=== PATIENT | male | born 1940 | race Caucasian/White ===

== ENCOUNTER 2020-04-05 17:56 | Inpatient (IN) | payer MEDICAID, MEDICARE, SELFPAY ==
[~2020-04-05] VITALS: Ht 175.3 cm; Wt 60.3 kg
[2020-04-05] MEDS: POTASSIUM CHLORIDE 10 MEQ in NACL 0.9% 1,000 ML IV SCH (00:20)
[2020-04-05 18:00] VITALS: BP_SYST 132
--- NOTE | 2020-04-05 18:05 | NUR ---
Placed in room 02 . Placed on cardiac/vascular sonographer, blood pressure machine and pulse oximeter. To gown for exam. Side rails up.
--- NOTE | 2020-04-05 18:07 | NUR ---
ER Dr. Lawrence at bedside examining patient.
--- NOTE | 2020-04-05 18:07 | NUR ---
Patient brought in by ambulance in the ED for abnormal labs - Hgb 6.5. No acute distress noted at this time. Patient is alert and oriented x1 and respirations even and unlabored. VSS, pain level 0/10. Informed of the approximate wait time. Instructed to notify ED staff for any changes in condition or worsening of symptoms while waiting to be seen by an ED provider. Patient verbalized understanding.
--- NOTE | 2020-04-05 18:08 | NUR ---
Patient arrives with polst of full code. Code status form placed in chart
[2020-04-05 18:26] LABS: BASOPHILS # (AUTO) 0.1 K/uL (0.0-0.2); EOSINOPHILS # (AUTO) 0.2 K/uL (0.0-0.4); RED BLOOD CELL COUNT(AUTO) 2.16 MIL/uL (4.2-6.2); RED CELL DISTRIBUTION WIDTH 20.6 % (9.0-15.0)
[2020-04-05] MEDS ORDERED: ZINC220T4 GT (18:33)
[2020-04-05] MEDS ORDERED: LEVO500T89 GT (18:33)
[2020-04-05] MEDS ORDERED: LANS30CA53 GT (18:33)
[2020-04-05] MEDS ORDERED: HEPA500015 SUBCUT (18:33)
[2020-04-05] MEDS ORDERED: POLY500W3 GT (18:33)
[2020-04-05] MEDS ORDERED: ASCO500T20 GT (18:33)
[2020-04-05] MEDS ORDERED: ALBU2.5V7 INH (18:33)
[2020-04-05] MEDS ORDERED: AMIN30LI2 GT (18:33)
[2020-04-05] MEDS ORDERED: ALBMDI INH (18:33)
[2020-04-05] MEDS ORDERED: ACET325T GT (18:33)
[2020-04-05] MEDS ORDERED: DOCU-144 GT (18:33)
[2020-04-05] MEDS ORDERED: CHLO473M5 PO (18:33)
[2020-04-05] MEDS ORDERED: MULT-1100 GT (18:33)
[2020-04-05] MEDS ORDERED: SENN8.6T19 GT (18:33)
[2020-04-05] MEDS ORDERED: FER300L GT (18:33)
[2020-04-05] MEDS ORDERED: CA C1TAB92 GT (18:33)
--- NOTE | 2020-04-05 18:33 | NUR ---
Medication reconciliation completed with information provided by Fam Villeda and [facility]. Any prior medication reconciliation on file was reviewed and corrected.
[2020-04-05 18:34] LABS: BASOPHILS % (AUTO) 0.5 % (0.0-2.0); EOSINOPHILS % (AUTO) 2.3 % (0.0-4.0); LYMPHOCYTES % (AUTO) 9.6 % (20.5-51.5); MEAN CORPUSCULAR HEMOGLOBIN 33 pg (27-31); MEAN CORPUSCULAR HGB CONC 34 % (32-36); MEAN CORPUSCULAR VOLUME 97 fL (79.0-98.0); NEUTROPHILS # (AUTO) 8.3 K/uL (1.8-7.7); NEUTROPHILS % (AUTO) 78.6 % (40.0-70.0); PLATELET COUNT (AUTO) 274 K/uL (130-430); WHITE BLOOD COUNT (AUTO) 10.5 K/uL (4.8-10.8)
[2020-04-05 18:35] LABS: ANION GAP 7 (5-15); CALCIUM 8.8 mg/dL (8.4-11.0); CHLORIDE 98 mmol/L (98-107); CREATININE 0.94 mg/dL (0.55-1.30); GLUCOSE 113 mg/dL (70-99); POTASSIUM 3.7 mmol/L (3.5-5.1); SODIUM SERUM 134 mmol/L (136-145); UREA NITROGEN, BLOOD 39 mg/dL (8-21)
[2020-04-05 18:41] LABS: ALANINE AMINOTRANSFERASE 21 U/L (12-78); ALBUMIN 2.2 g/dL (3.4-4.8); ASPARTATE AMINOTRANSFERASE 20 U/L (10-37)
[2020-04-05 18:55] LABS: PROTHROMBIN TIME 9.9 SECS (9.5-12.5)
--- NOTE | 2020-04-05 19:24 | NUR ---
Report given and care transferred to TERRY Singh.
[2020-04-05 19:25] LABS: TOTAL BILIRUBIN 0.3 mg/dL (0.0-1.0)
[2020-04-05] MEDS ORDERED: NACL 0.9% 1,000 ML IV ONE (19:30)
[2020-04-05] MEDS ORDERED: VANCOMYCIN HCL 1,000 MG in D5W 250 ML IV ONE (19:30)
--- NOTE | 2020-04-05 19:49 | NUR ---
RECEIVED ADMIT ORDERS FROM DR. AMIN.
--- NOTE | 2020-04-05 19:51 | NUR ---
REQUESTED TELE BED FROM TERRY LAMAS.
--- NOTE | 2020-04-05 20:02 | NUR ---
SPOKE WITH CHILD OF PATIENT, PETEJACQUELINE MCCARTHY, TO RECEIVED VERBAL CONSENT WITH TWO NURSES FOR PRIOR TO BLOOD TRANSFUSION.
--- NOTE | 2020-04-05 20:04 | NUR ---
RECEIVED A CALLED FROM [facility] INFORMING US PATIENT IS ON ISOLATION FOR MRSA. I CALLED THE FLOOR AND INFORMED BAG MACHINE SET UP OPERATOR, ADAMS.
--- NOTE | 2020-04-05 20:16 | NUR ---
respiratory therapist at bedside for ABG draw.
[2020-04-05] MEDS ORDERED: VANCOMYCIN HCL 1000 MG/VIAL IV ONE (20:27)
--- NOTE | 2020-04-05 20:53 | NUR ---
RESPIRATORY AT BEDSIDE TO SUCTION PATIENT.
[2020-04-05] MEDS ORDERED: cefTRIAXone 1 GM IVPB PREMIX 50 ML IV SCH (21:00)
--- NOTE | 2020-04-05 21:12 | NUR ---
PATIENT ARRIVED WITH PRESSURE ULCER TO SACRAL REGION, PRESSURE ULCER TO RIGHT HEEL & LEFT HEEL FROM [facility] & IS IN AGREEMENT WITH DOCUMENTATION FROM FACILITY.
--- NOTE | 2020-04-05 21:25 | NUR ---
LAB AT BEDSIDE FOR SECOND LACTIC DRAW.
[2020-04-05] MEDS ORDERED: cefTRIAXone 1 GM IVPB PREMIX 50 ML IV ONE (21:30)
[2020-04-05] MEDS ORDERED: SENNOSIDES 8.6 MG TABLET GT PRN (22:30)
[2020-04-05] MEDS ORDERED: ALBUTEROL SULFATE 0.083% 2.5 MG/3 ML VIAL.NEB INH PRN (22:30)
--- NOTE | 2020-04-05 22:35 | NUR ---
Patient will be admitted to care of [facility]. Admitted to TELE unit. Will go to room PENDING. Belongings list completed. Complete and up to date summary report printed. SBAR report to be given at bedside with opportunity for questions.
[2020-04-05] MEDS ORDERED: ACETAMINOPHEN 650 MG/20.3 ML UDC GT PRN (22:45)
--- NOTE | 2020-04-05 23:39 | NUR ---
patient resting in bed, vital signs stable, no signs of acute distress. breathing even and unlabored.
--- NOTE | 2020-04-05 23:54 | NUR ---
respiratory at bedside to suction trach.
[2020-04-06] VITALS (7 sets, daily range): BP systolic 109–122
--- NOTE | 2020-04-06 00:12 | NUR ---
PATIENT GOING TO BED 102A.
--- NOTE | 2020-04-06 00:13 | NUR ---
Transfer to TELE via ACLS protocol. Licensed nurse present. IV present no signs or symptoms of infiltration.
--- NOTE | 2020-04-06 00:20 | NUR ---
ADMISSION: The patient, ZHANG TY, 79 y/o, M admitted by MARISA AMIN MD, with the diagnosis of severe anemia , PNA, chronic respiratory failure s/p trach to room 102 A , Primary RN at bedside .
--- NOTE | 2020-04-06 01:50 | NUR ---
S/W: DR AMIN, NOTIFIED THAT WE DON'T HAVE KCL 10MEQ IN NS 1000 ON HAND AND THAT IT WOULD BE AVAILABLE LATER THIS MORNING VIA PHARMACY, PATIENT CURRENTLY HAS NS RUNNING AT 100ML/HR FROM ER. SAID TO GIVE PATIENT NS AT 70ML/HR WHILE KCL 10MEQ IN NS 1000 IS NOT AVAILABLE. IVF ADJUSTED TO 70ML/HR. WAS ALSO NOTIFIED THAT PATIENT ATTEMPTED TO REMOVE HIS GTUBE AND TRACH AND HE HAD BILATERAL MITTEN RESTRAINTS FROM THE SNF, MD ORDERED BILATERAL WRIST RESTRAINTS AND 4 SIDE RAILS UP FOR SAFETY.
--- NOTE | 2020-04-06 02:45 | NUR ---
BT INITIATION: Consent signed by 2 RNs in the ER per patient's family agreeing to administration of blood in via telephone order. Blood has been type and crossmatched in ER. Blood sent from blood bank. Information on unit of blood checked against patient wristband at bedside by two nurses. All information matches. Patient or responsible green party informed of potential complications associated with blood transfusion. Informed of possible transfusion reaction symptoms. Aware of need to notify nurse at once of itching, shortness of breath, flushing, feeling of impending doom, or other symptoms not previously present. Vital signs taken within 5 minutes prior to initiation of transfusion. RN will remain with patient for first 15 minutes of transfusion at which time vital signs will be re-assessed.
[2020-04-06 05:36] LABS: BILIRUBIN,URINE NEGATIVE (NEGATIVE); BLOOD, URINE NEGATIVE (NEGATIVE); CLARITY/URINE CLEAR (CLEAR); COLOR,URINE YELLOW (YELLOW); GLUCOSE,URINE NEGATIVE (NEGATIVE); KETONES,URINE NEGATIVE (NEGATIVE); LEUKOCYTE ESTERASE ,URINE NEGATIVE (NEGATIVE); NITRITE, URINE NEGATIVE (NEGATIVE); PH,URINE 8.5 (5.0-8.0); PROTEIN URINE 1+ (NEGATIVE); UROBILINOGEN,URINE 0.2 (0.2-1.0)
[2020-04-06 05:50] LABS: BACTERIA,URINE FEW /HPF (None Seen); RBC,URINE 0-3 /HPF (0-3); WBC,URINE 0-3 /HPF (0-3)
--- NOTE | 2020-04-06 05:55 | NUR ---
BLOOD TRANSFUSION DONE, VITAL SIGNS STABLE, PATIENT DENIES ANY PAIN/SOB. FALL/SAFETY/ASPIRATION/ISOLATION PRECAUTIONS, WILL CONTINUE TO MONITOR.
--- NOTE | 2020-04-06 06:17 | NUR ---
S/W: DESTINEY PALMR OF THE PATIENT, NOTIFIED THAT WE HAD TO PUT PATIENT ON BILATERAL MITTENS AND 4 SIDE RAILS UP RESTRAINTS DUE TO PATIENT ATTEMPTING TO PULL TUBES AND FOR SAFETY, PATIENT AGREED, CONFIRMED WITH 2 NURSES, SIGNED CONSENT. DAUGHTER WANTS MD AND MD CONSULT TO GIVE FOLLOW UP/UPDATES AND WITHHELD CONSENT FOR NOW REGARDING OBTAINING A FLU SHOT BEFORE SPEAKING WITH THE DOCTOR. WILL ENDORSE TO MORNING SHIFT RN TO FOLLOW UP.
--- NOTE | 2020-04-06 06:32 | NUR ---
ASKED MEAL TEMPERER FOR ORDERED GT FEEDING AT 0200. FOLLOWED UP W/ LINING SETTER REGARDING THE JEVITY 1.5 FEEDING, HOUSE SUP UNABLE TO OBTAIN AND SAID TO ASK DIETARY. DIETARY SAID THEY WILL BRING THE FEEDING WITH THE BREAKFAST CART, WILL ENDORSE TO MORNING SHIFT RN.
--- NOTE | 2020-04-06 07:00 | NUR ---
ENDORSE CARE TO MORNING SHIFT RN VIA SBAR.
[2020-04-06 07:45] LABS: BASOPHILS % (AUTO) 0.5 % (0.0-2.0); EOSINOPHILS # (AUTO) 0.3 K/uL (0.0-0.4); EOSINOPHILS % (AUTO) 3.2 % (0.0-4.0); HEMATOCRIT 23.7 % (36-54); HEMOGLOBIN 8.2 g/dL (14.0-18.0); LYMPHOCYTES # (AUTO) 0.7 K/uL (1.0-5.5); MEAN CORPUSCULAR HEMOGLOBIN 33 pg (27-31); MEAN CORPUSCULAR HGB CONC 35 % (32-36); MEAN CORPUSCULAR VOLUME 95 fL (79.0-98.0); MONOCYTES # (AUTO) 0.7 K/uL (0.0-1.0); MONOCYTES % (AUTO) 7.9 % (1.7-9.3); NEUTROPHILS % (AUTO) 80.4 % (40.0-70.0); PLATELET COUNT (AUTO) 259 K/uL (130-430); RED CELL DISTRIBUTION WIDTH 19.2 % (9.0-15.0); WHITE BLOOD COUNT (AUTO) 8.7 K/uL (4.8-10.8)
--- NOTE | 2020-04-06 08:00 | NUR ---
pt resting in bed,confused,trach with O2 via T bar @ 4L/NC,sat 100%,afebrile,vss,sinus tachycardia hr 100's IVF continue infusing,mitten restraints on both hands to prevent pt pulling out tubing.total care provided continue to monitor pt.
[2020-04-06] MEDS: LANSOPRAZOLE 30 MG CAPSULE.DR GT SCH (08:27)
[2020-04-06] MEDS: FERROUS SULFATE 300 MG/5 ML UDC GT SCH (08:27)
[2020-04-06] MEDS: ASCORBIC ACID 500 MG TABLET GT SCH ×2 (08:28→20:25)
[2020-04-06] MEDS: DOCUSATE SODIUM 100 MG CAPSULE PO SCH ×2 (08:28→20:25)
[2020-04-06 08:29] LABS: ANION GAP 5 (5-15); CALCIUM 9.4 mg/dL (8.4-11.0); CHLORIDE 102 mmol/L (98-107); GLUCOSE 102 mg/dL (70-99); POTASSIUM 3.5 mmol/L (3.5-5.1); SODIUM SERUM 136 mmol/L (136-145)
[2020-04-06 08:30] LABS: ALANINE AMINOTRANSFERASE 18 U/L (12-78); ALBUMIN 2.1 g/dL (3.4-4.8); ASPARTATE AMINOTRANSFERASE 14 U/L (10-37); CREATININE 0.79 mg/dL (0.55-1.30); THYROID STIMULATING HORMONE 2.07 uIu/mL (0.34-4.82); TOTAL BILIRUBIN 0.3 mg/dL (0.0-1.0); UREA NITROGEN, BLOOD 29 mg/dL (8-21)
[2020-04-06] MEDS: POTASSIUM CHLORIDE 10 MEQ in NACL 0.9% 1,000 ML IV SCH ×2 (08:34→20:25)
--- NOTE | 2020-04-06 08:41 | NUR ---
Nutrition Update Mann scale 12 noted. Pt admitted for severe anemia, PNA, chronic respiratory failure status. Diet: Tube Feeding Jevity 1.5 at 85 ml/hr for 20 hours via GT. BMI: 19.7 kg/m2 RD to follow per nutrition care standards.
[2020-04-06 08:54] LABS: TOTAL IRON BIND. CAPACITY 329 ug/dL (250-450)
[2020-04-06] MEDS: CHLORHEXIDINE GLUCONATE 15 ML/DOSE, 480 ML MM SCH ×2 (09:00→20:27)
--- NOTE | 2020-04-06 10:00 | NUR ---
came and seen pt.updated dr vasquez of pt condition.orders received and carried out.
--- NOTE | 2020-04-06 10:33 | NUR ---
CONSULT GI DENIZ, S/P SHARIF MCMILLAN DR Addendum: 04/06/20 at 1657 by Viky Donohue OR/ CONSULT PULMONOLOGY DENIZ, S/P SHARIF MCMILLAN DR, DR
--- NOTE | 2020-04-06 12:00 | NUR ---
temp 99,IVF continue infusing,started TF jevity @ 40cc per hr & flush 200ml water via GT per dr order.inserted dumas catheter 16 Fr,dumas catheter drains estela urine by gravity.pt turned and repositioned per pressure ulcer treatment
--- NOTE | 2020-04-06 14:00 | NUR ---
came and seen pt for pulmonary consult.updated of pt condition,obtained order to collect sputum for culture,RT called and notified of order.started IV antibiotic per order.
--- NOTE | 2020-04-06 14:21 | NUR ---
Case mgt: Called Luiz So at [phone] but vm is full-unable to leave messageI called the other ph# on face sheet [phone] [facility] said there is nobody there by that name-pt is from [place] [facility]--trach w/Tbar at 4L, has G-tube feedings, confused--will call daughter Luiz again for f/u on dc planning-- RN
[2020-04-06] MEDS: cefTRIAXone 1 GM in D5W 50 ML IV SCH (14:59)
[2020-04-06] MEDS: metroNIDAZOLE 500 mg/NS 100 ML IV SCH ×2 (14:59→21:56)
--- NOTE | 2020-04-06 15:15 | NUR ---
Dietitian Recommendations Recommend decrease TF Jevity 1.5 goal rate to 60 ml/hr x 20 hrs to provide 1800 kcal, 77 g protein, 912 ml free H20 w/ FWF 150 ml q4h or per MD to meet 98% of upper end estimated kcal needs and 105% of lower end estimated protein needs to avoid overfeeding pt. Please see Nutrition Assessment for details. EP,RD
--- NOTE | 2020-04-06 15:30 | NUR ---
RT NOTE: 1530 Sputum collected via trach. Sent to lab shortly after. TERRY Murphy made aware.
--- NOTE | 2020-04-06 16:00 | NUR ---
temp 99.4,pt pulling on tubing,dumas cath drains blood tinged urine,continue mitten restraints to prevent pt pulling out tubing,pt tolerated TF,no residual per GT.
--- NOTE | 2020-04-06 18:30 | NUR ---
pt sleeping well in bed,no respiratory distress noted.O2 sat 95%,pulse 99,will endorse report to global professional staff.
--- NOTE | 2020-04-06 19:25 | NUR ---
OPENING NOTE PATIENT AWAKE, AOX1-2. NO SIGNS OF RESPIRATORY DISTRESS NOTED. VERBALIZED MILD PAIN. WILL ADMINISTER PRM PAIN MEDICATION. ON 4L OF OXYGEN VIA TRACH-BAR, 02 SATURATION OF 100%. PATIENT ON G-TUBE FEEDING @40ML/HR, NO RESIDUAL NOTED. FLUSHING WELL. IVF INFUSING WELL, PATENCY NOTED. HEELS ARE ELEVATED. PATIENT ON MITTENS, NO INJURY NOTED. BED LOCKED AND LOWEST POSITION. SAFETY AND ISOLATION PRECAUTIONS IN PLACE. WILL CONTINUE TO MONITOR PATIENT. Addendum: 04/07/20 at 0248 by Tasneem Mendieta RN HEELS ARE ELEVATED WITH PILLOW SUPPORT.
--- NOTE | 2020-04-06 20:25 | NUR ---
MED PASS DUE MEDICATION GIVEN AT THIS TIME VIA G-TUBE, PATIENT TOLERATED WELL. G-TUBE HAS NO RESIDUAL NOTED, FLUSHING WELL. G-TUBE FEEDING AT 40ML/HR. PATIENT WAS EDUCATED ON MEDICATION THAT WAS GIVEN FOR ITS PURPOSE, SIDE EFFECT AND BENEFITS. PATIENT UNABLE TO VERBALIZED UNDERSTANDING. SAFETY AND ISOLATION PRECAUTIONS IN PLACE. WILL CONTINUE TO MONITOR PATIENT
[2020-04-06] MEDS: HEPARIN SODIUM,PORCINE 5,000 UNITS/ML VIAL SUBCUT SCH (20:27)
--- NOTE | 2020-04-06 23:45 | NUR ---
RN ROUNDS PATIENT AWAKE. DENIES PAIN AND DISCOMFORT. NO SIGNS OF RESPIRATORY DISTRESS NOTED. BREATHING EVEN AND UNLABORED. ON 4L OF TRACH BAR, O2 SATURATION OF 100%. PATIENT TOLERATING WELL. IVF INFUSING WELL. G-TUBE, PATENCY NOTED. SAFETY AND ISOLATION PRECAUTIONS IN PLACE. REPOSITIONED PATIENT. WILL CONTINUE TO MONITOR PATIENT.
[2020-04-07 00:11] VITALS: BP_SYST 111
--- NOTE | 2020-04-07 02:36 | NUR ---
RN ROUNDS PATIENT ASLEEP AT THIS TIME. NO SIGNS OF RESPIRATORY DISTRESS AND DISCOMFORT NOTED. BREATHING EVEN AND UNLABORED. ON 4L OF TRACH BAR, O2 SATURATION OF 100%. PATIENT TOLERATING WELL. IVF INFUSING WELL. G-TUBE, PATENCY NOTED. SAFETY AND ISOLATION PRECAUTIONS IN PLACE. WILL CONTINUE TO MONITOR PATIENT.
[2020-04-07] MEDS: metroNIDAZOLE 500 mg/NS 100 ML IV SCH ×3 (05:18→22:23)
[2020-04-07 06:29] LABS: BASOPHILS # (AUTO) 0.1 K/uL (0.0-0.2); EOSINOPHILS # (AUTO) 0.4 K/uL (0.0-0.4); EOSINOPHILS % (AUTO) 5.6 % (0.0-4.0); HEMOGLOBIN 8.3 g/dL (14.0-18.0); LYMPHOCYTES # (AUTO) 0.8 K/uL (1.0-5.5); LYMPHOCYTES % (AUTO) 10.4 % (20.5-51.5); MEAN CORPUSCULAR HEMOGLOBIN 33 pg (27-31); MEAN CORPUSCULAR HGB CONC 34 % (32-36); MEAN CORPUSCULAR VOLUME 96 fL (79.0-98.0); MONOCYTES # (AUTO) 0.7 K/uL (0.0-1.0); MONOCYTES % (AUTO) 9.8 % (1.7-9.3); NEUTROPHILS # (AUTO) 5.5 K/uL (1.8-7.7); NEUTROPHILS % (AUTO) 73.2 % (40.0-70.0); PLATELET COUNT (AUTO) 252 K/uL (130-430); RED BLOOD CELL COUNT(AUTO) 2.51 MIL/uL (4.2-6.2); RED CELL DISTRIBUTION WIDTH 19.1 % (9.0-15.0); WHITE BLOOD COUNT (AUTO) 7.5 K/uL (4.8-10.8)
[2020-04-07 06:35] LABS: ANION GAP 8 (5-15); CALCIUM 8.5 mg/dL (8.4-11.0); CHLORIDE 103 mmol/L (98-107); CREATININE 0.78 mg/dL (0.55-1.30); GLUCOSE 112 mg/dL (70-99); POTASSIUM 3.4 mmol/L (3.5-5.1); SODIUM SERUM 137 mmol/L (136-145); UREA NITROGEN, BLOOD 23 mg/dL (8-21)
--- NOTE | 2020-04-07 07:20 | NUR ---
CLOSING NOTE PATIENT ASLEEP AT THIS TIME. NO SIGNS OF RESPIRATORY DISTRESS NOTED. ON 4L OF OXYGEN VIA TRACH-BAR, 02 SATURATION OF 100%. PATIENT ON G-TUBE FEEDING @60ML/HR, NO RESIDUAL NOTED. FLUSHING WELL. IVF INFUSING WELL, PATENCY NOTED. HEELS ARE ELEVATED WITH PILLOWS. PATIENT ON MITTENS, NO INJURY NOTED. BED LOCKED AND LOWEST POSITION. SAFETY AND ISOLATION PRECAUTIONS IN PLACE. ALL NEEDS MET THROUGHOUT THE SHIFT. ENDORSE TO KANDI SIMPSON RN FOR CONTINUITY OF CARE.
--- NOTE | 2020-04-07 07:55 | NUR ---
Initial notes Awake, alert. T-bar at 4l tolerating well. feeding at 60ml at this time. tolerating so far. Oral care done. dumas has bloody output. Patient denies any pain or discomfort. Turned and repositioned. on bilateral mittens. safety precaution observed. bed alarm on. will monitor.
[2020-04-07 08:05] VITALS: BP_SYST 142
[2020-04-07 08:06] LABS: FOLATE (FOLIC ACID) 15.4 ng/mL (>3.0)
[2020-04-07] MEDS: LANSOPRAZOLE 30 MG CAPSULE.DR GT SCH (08:34)
[2020-04-07] MEDS: ASCORBIC ACID 500 MG TABLET GT SCH ×2 (08:34→22:23)
[2020-04-07] MEDS: FERROUS SULFATE 300 MG/5 ML UDC GT SCH (08:34)
[2020-04-07] MEDS: DOCUSATE SODIUM 100 MG CAPSULE PO SCH ×2 (08:34→22:23)
[2020-04-07] MEDS: CHLORHEXIDINE GLUCONATE 15 ML/DOSE, 480 ML MM SCH ×2 (08:57→21:00)
[2020-04-07] MEDS: HEPARIN SODIUM,PORCINE 5,000 UNITS/ML VIAL SUBCUT SCH ×2 (09:00→22:25)
[2020-04-07] MEDS ORDERED: POTASSIUM CHLORIDE 10 MEQ TAB.PRT.SR GT ONE (09:00)
[2020-04-07] MEDS: POTASSIUM CHLORIDE 10 MEQ in NACL 0.9% 1,000 ML IV SCH (09:54)
--- NOTE | 2020-04-07 10:14 | NUR ---
Notes Awake in bed, denies any pain. no distress noted. repositioned.
[2020-04-07 12:00] VITALS: BP_SYST 139
[2020-04-07 12:18] VITALS: BP_SYST 127
--- NOTE | 2020-04-07 13:01 | NUR ---
Notes Watching tv. no distress noted.
--- NOTE | 2020-04-07 14:00 | NUR ---
WOUND EVALUATION: Wound Consult received from Dr. Blackmon. Thank you, Dr. Blackmon, for the consult. Patient received in a Garland Bed with an IsoFlex RICH mattress, awake, alert, confused. Patient is unable to turn in bed independently. Mann Score is an 11. Past Medical History: Covid-19 Pneumonia in 09/2019, Respiratory Failure, CVA, Anemia, Chronic Hypoxemic Respiratory Failure, Bipolar Disorder, IVAN, chronic Tracheostomy, G-tube. Patient admitted for low hgb of 6.8. Recent labs: WBC 7.5, RBC 2.51, hemoglobin 8.3, hematocrit 24.0, potassium 3.4, BUN 23, creatinine 0.78, glucose 112, albumin 2.1, PTT 39.0. Microbiology: Blood culture results x2 in progress. Tracheal Sputum culture results in progress. MRSA screen results positive. Intrinsic factors that delay wound healing: Anemia, Chronic Hypoxemic Respiratory Failure. Extrinsic factors that delay wound healing: Decreased mobility. Per assessment by Dr. Blackmon: Severe Anemia, Chronic Respiratory Failure, Tracheostomy Pneumonia, aspiration precautions, severe Malnutrition, G-tube, G-tube feeding, Sacral and Heel decubitus ulcers. : Wound Assessment: 1. Sacral area: Stage IV pressure ulcer, present on admission. Wound bed has 75% yellow slough, 20% light pink tissue, 10% dull pink tissue. Bone is palpable. No odor, no drainage. Periwound and surrounding tissue has scar tissue and maceration. Undermining present from 85:00 o'clock (1.5 cm at 9 o'clock; 1.3 cm at 12 o'clock; 1.8 cm 3 o'clock). Undermining at 3:00 goes underneath wound site 2. Wound measures 4.0 cm x 1.5 cm x 2.0 cm. Recommend: Cleanse wound with normal saline. Apply Calmoseptine cream to obie-wound. Apply Venelex ointment to wound bed. Pack wound with 1/4 inch iodoform packing strip. Cover with non-adhesive foam dressings. Secure with transparent dressings. Perform wound care daily, and as needed for dressing soiling or dislodgement. 2. Sacral area, right lateral to site 1: Unstageable pressure ulcer, present on admission. Wound bed has 90% yellow tissue, 10% pink tissue. No odor, no drainage. Periwound intact with dark discolored skin. Surrounding tissue has macerated tissue. Wound measures 4.5 cm x 5.5 cm. 3. Sacral area, Superior and right lateral to site 2: Unstageable pressure ulcer, present on admission. Wound bed has 90% yellow tissue, 10% pink tissue. No odor, no drainage. Periwound intact. Surrounding tissue has macerated tissue. Wound measures 2.6 cm x 4.5 cm. 4. Sacral area, right lateral to site 3: Unstageable pressure ulcer, present on admission. Wound bed has 90% yellow tissue, 10% red tissue. No odor, no drainage. Periwound intact, pink scar tissue. Surrounding tissue has macerated tissue. Wound measures 1.0 cm x 1.2 cm. Recommend: Cleanse wounds with normal saline. Apply Calmoseptine cream to obie-wounds. Apply Venelex ointment to wound beds. Cover with non-adhesive foam dressings. Secure with transparent dressings. Perform wound care daily, and as needed for dressing soiling or dislodgement. 5. Sacral area, right lateral to site 4: Unstageable pressure ulcer, present on admission. Wound bed has 90% yellow tissue, 10% pink tissue. No odor, no drainage. Periwound intact, pink scar tissue. Surrounding tissue has macerated tissue. Wound measures 1.8 cm x 2.0 cm. Recommend: Cleanse wound with normal saline. Apply Calmoseptine cream to obie-wound. Apply Venelex ointment to wound bed. Cover with non-adhesive foam dressings. Secure with transparent dressings. Perform wound care daily, and as needed for dressing soiling or dislodgement. 6. Sacral area, left lateral to site 1: Unstageable pressure ulcer, present on admission. Wound bed has 90% yellow tissue, 10% pink tissue. No odor, no drainage. Periwound intact, pink scar tissue. Surrounding tissue has macerated tissue. Wound measures 2.5 cm x 0.3 cm. 7. Sacral area, superior to site 6: Unstageable pressure ulcer, present on admission. Wound bed has 90% yellow tissue, 10% red tissue. No odor, no drainage. Periwound intact, pink scar tissue. Surrounding tissue has macerated tissue. Wound measures 2.0 cm x 2.7 cm. Recommend: Cleanse wounds with normal saline. Apply Calmoseptine cream to obie-wounds. Apply Venelex ointment to wound beds. Cover with non-adhesive foam dressings. Secure with transparent dressings. Perform wound care daily, and as needed for dressing soiling or dislodgement. 8. Left lateral hip: Unstageable pressure ulcer, present on admission. Wound bed has 90% dry red tissue, 10% black eschar. No odor, no drainage. Periwound intact. Wound measures 0.7 cm x 0.4 cm. Recommend: Apply Calmoseptine cream to site. Cover site with foam dressing. Change dressing and assess site daily, and as needed for dressing soiling or dislodgment. 9. Right posterior heel: Unstageable pressure ulcer, present on admission. Wound bed has 90% yellow tissue, 5% pink tissue, 5% white tissue. No odor, scant yellow drainage. Periwound intact. Surrounding tissue has scar tissue and dry flaky skin. Wound measures 1.3 cm x 1.1 cm. Recommend: Cleanse wound with normal saline. Apply Calmoseptine cream to obie-wound. Apply Venelex ointment to wound bed. Cover with foam dressing. Wrap with jose de jesus wrap. Perform wound care daily, and as needed for dressing soiling or dislodgement. 10. Right heel, medial to site 10: Unstageable pressure ulcer, present on admission. Wound bed has 100% Black eschar. No odor, no drainage. Periwound intact. Surrounding tissue has scar tissue and dry flaky skin. Wound measures 0.7 cm x 0.4 cm. 11. Right lateral heel: Unstageable pressure ulcer, present on admission. Wound bed has 100% Black eschar. No odor, no drainage. Periwound intact. Surrounding tissue has scar tissue and dry flaky skin. Wound measures 2.2 cm x 0.4 cm. Recommend: Apply Calmoseptine to periwounds. Cover with same foam dressing as used for site 9. Change dressing and assess site daily and as needed for dressing soiling or dislodgment. Also recommend: Encourage and assist patient with repositioning patient side to side only every 2 hours with pillow support and off-load pressure areas with pillows for pressure re-distribution. Offload, elevate and float bilateral heels with one pillow lengthwise under each extremity at all times. Perform skin care and monitor skin integrity Q shift. Use moisture barrier cream on buttocks and other moisture susceptible areas QID and as needed for soiling. Maintain patient on a low air-loss mattress.
[2020-04-07] MEDS ORDERED: BALSAM PERU/CASTOR OIL 60 GM OINT...G. TP SCH (14:30)
[2020-04-07] MEDS ORDERED: MENTHOL/ZINC OXIDE 113 GM OINT. TP PRN (14:30)
[2020-04-07] MEDS ORDERED: BALSAM PERU/CASTOR OIL 60 GM OINT...G. TP ONE (14:30)
--- NOTE | 2020-04-07 14:30 | NUR ---
Respiratory at bedside suctioning patient.
[2020-04-07] MEDS: cefTRIAXone 1 GM in D5W 50 ML IV SCH (15:44)
[2020-04-07 16:00] VITALS: BP_SYST 139
--- NOTE | 2020-04-07 16:30 | NUR ---
notes Has soft bowel movement, cleaned patient.
--- NOTE | 2020-04-07 19:52 | NUR ---
Initial note: Received report from zena STEWART. Patient is awake in bed, no acute distress. Even, unlabored breathing on trach to 4L T-bar. IV fluids infusing well to right wrist IV site. Bilateral mittens in place per MD order, no skin breakdown noted. Velázquez draining clear, yellow urine to gravity. Call light with patient. Safety, fall, contact iso precautions in place. Will continue with plan of care. Addendum: 04/08/20 at 0655 by Demar Juares RN Tubefeeding to G-tube in place per MD order, 10 ML gastric residual noted.
[2020-04-07 20:00] VITALS: BP_SYST 135
--- NOTE | 2020-04-07 22:15 | NUR ---
SPOKE TO ARPITA MCCARTHY (FAMILY MEMBER) REGARDING FLU VACCINE. ARPITA MCCARTHY STATED THAT IT IS OKAY TO GIVE FLU SHOT.
[2020-04-08 00:16] VITALS: BP_SYST 132
--- NOTE | 2020-04-08 00:53 | NUR ---
Rounds: Patient resting in bed. No acute distress. Tolerating 4 L T-bar. IV fluids infusing well. Tubefeeding to G-tube in place. Velázquez draining blood-tinged urine to gravity. Call light with patient. Will continue monitoring.
--- NOTE | 2020-04-08 03:55 | NUR ---
Rounds: Patient sleeing in bed. No signs/symptoms of acute distress. Tolerating 4 L T-bar. IV fluids infusing well, no infiltration. Tubefeeding to G-tube in place. Velázquez draining blood-tinged urine to gravity. Bilateral mittens in place with no skin breakdown noted, circulation WNL. Call light with patient. Will continue monitoring.
[2020-04-08] MEDS: metroNIDAZOLE 500 mg/NS 100 ML IV SCH ×3 (06:17→22:00)
--- NOTE | 2020-04-08 06:26 | NUR ---
Closing note: Received report from zena RN. Patient is awake in bed, no acute distress. Even, unlabored breathing on trach to 4L T-bar. IV fluids infusing well to right wrist IV site. Bilateral mittens in place per MD order, no skin breakdown noted. Tubefeeding via G-tube in place as ordered. Velázquez draining blood-tinged urine to gravity. All needs met. Call light with patient. Safety, fall, contact iso precautions observed. Will continue with plan of care.
[2020-04-08] MEDS ORDERED: FLU VACC QS2020-21(65UP)/PF 0.7 ML/SYRINGE I.M. PRN (07:00)
[2020-04-08 07:01] LABS: ANION GAP 9 (5-15); CALCIUM 8.2 mg/dL (8.4-11.0); CHLORIDE 104 mmol/L (98-107); CREATININE 0.81 mg/dL (0.55-1.30); GLUCOSE 138 mg/dL (70-99); POTASSIUM 3.9 mmol/L (3.5-5.1); SODIUM SERUM 141 mmol/L (136-145); UREA NITROGEN, BLOOD 24 mg/dL (8-21)
[2020-04-08 07:05] LABS: BASOPHILS % (AUTO) 0.5 % (0.0-2.0); EOSINOPHILS # (AUTO) 0.5 K/uL (0.0-0.4); EOSINOPHILS % (AUTO) 4.9 % (0.0-4.0); HEMATOCRIT 25.9 % (36-54); HEMOGLOBIN 8.6 g/dL (14.0-18.0); LYMPHOCYTES # (AUTO) 0.8 K/uL (1.0-5.5); LYMPHOCYTES % (AUTO) 8.3 % (20.5-51.5); MEAN CORPUSCULAR HEMOGLOBIN 33 pg (27-31); MEAN CORPUSCULAR HGB CONC 33 % (32-36); MONOCYTES % (AUTO) 10.3 % (1.7-9.3); NEUTROPHILS # (AUTO) 7.2 K/uL (1.8-7.7); PLATELET COUNT (AUTO) 265 K/uL (130-430); RED BLOOD CELL COUNT(AUTO) 2.65 MIL/uL (4.2-6.2); RED CELL DISTRIBUTION WIDTH 18.8 % (9.0-15.0)
[2020-04-08 07:07] LABS: MEAN CORPUSCULAR VOLUME 97 fL (79.0-98.0); WHITE BLOOD COUNT (AUTO) 9.5 K/uL (4.8-10.8)
--- NOTE | 2020-04-08 07:15 | NUR ---
Opening Note patient in bed alert and awake, no signs of distress noted, dumas catheter draining blood, tube feeding at 85 ml and patient tolerating well, bed locked and at low position, call light within reach, contact/fall and aspiration precautions put in place
[2020-04-08] MEDS: HEPARIN SODIUM,PORCINE 5,000 UNITS/ML VIAL SUBCUT SCH ×2 (09:00→20:38)
[2020-04-08] MEDS: CHLORHEXIDINE GLUCONATE 15 ML/DOSE, 480 ML MM SCH ×2 (09:00→20:39)
[2020-04-08] MEDS: FERROUS SULFATE 300 MG/5 ML UDC GT SCH (10:31)
[2020-04-08] MEDS: DOCUSATE SODIUM 100 MG CAPSULE PO SCH ×2 (10:32→20:36)
[2020-04-08] MEDS: LANSOPRAZOLE 30 MG CAPSULE.DR GT SCH (10:32)
[2020-04-08] MEDS: ASCORBIC ACID 500 MG TABLET GT SCH ×2 (10:32→20:36)
[2020-04-08] MEDS: POTASSIUM CHLORIDE 10 MEQ in NACL 0.9% 1,000 ML IV SCH (10:33)
[2020-04-08] MEDS: BALSAM PERU/CASTOR OIL 60 GM OINT...G. TP SCH (10:34)
--- NOTE | 2020-04-08 10:35 | NUR ---
RN Rounds patient in bed resting, no signs of distress noted, patient tolerating oxygen on trach well, safety measures maintained.
[2020-04-08 11:23] VITALS: BP_SYST 133
--- NOTE | 2020-04-08 11:30 | NUR ---
Paged Dr. Blackmon paged Dr. Blackmon at .
--- NOTE | 2020-04-08 13:33 | NUR ---
RN Rounds patient in bed in stable condition, no signs of distress noted, bed locked and at low position, call light within reach, no other needs at this time.
[2020-04-08] MEDS: cefTRIAXone 1 GM in D5W 50 ML IV SCH (14:46)
[2020-04-08 15:32] VITALS: BP_SYST 142
--- NOTE | 2020-04-08 15:52 | NUR ---
RN Rounds patient in bed resting, respirations even and unlabored, no other needs at this time.
--- NOTE | 2020-04-08 16:12 | NUR ---
RN Rounds patient in bed in stable condition, safety precautions maintained.
--- NOTE | 2020-04-08 18:45 | NUR ---
Removed dumas catheter patient tolerated well.
--- NOTE | 2020-04-08 18:55 | NUR ---
Closing Note patient in bed alert and awake, no signs of distress noted, bed locked and at low position, call light within reach, contact/fall and aspiration precautions maintained through out shift, endorse patient care to oncoming night clerk auditor nurse.
--- NOTE | 2020-04-08 19:47 | NUR ---
Initial note: Received report from zena RN. Patient is awake in bed, no acute distress. Even, unlabored breathing on trach to 4L T-bar. IV site saline locked. Bilateral mittens in place per MD order, no skin breakdown noted. Tubefeeding in place as ordered to G-tube. Eber was D/C'd by zena RN. Call light with patient. Safety, fall, contact iso precautions in place. Will continue with plan of care.
[2020-04-08 20:32] VITALS: BP_SYST 132
--- NOTE | 2020-04-08 22:03 | NUR ---
Flu vaccine: Patient's daughter per face sheet Luiz So was contacted over the phone regarding administration of flu vaccine. Indications and side effects were discussed, and she agreed to patient receiving the flu vaccine. Flu vaccine administered to patient intramuscularly, tolerated well. Call light with patient. Will continue monitoring.
[2020-04-09 00:26] VITALS: BP_SYST 136
--- NOTE | 2020-04-09 00:36 | NUR ---
Rounds: Patient sleeping in bed. No signs/symptoms of acute distress. Tolerating 4 L T-bar. IV site saline locked. Tubefeeding to G-tube in place. Bilateral mittens in place with no skin breakdown noted, circulation WNL. Call light with patient. Will continue monitoring.
--- NOTE | 2020-04-09 02:00 | NUR ---
D/C restraints: Bilateral wrist mittens order not renewed. Removed mittens as patient has not been restless since start of shift. Will monitor closely.
--- NOTE | 2020-04-09 04:32 | NUR ---
Rounds: Patient calm, quietly sleeping in bed. No signs/symptoms of acute distress. Tolerating 4 L T-bar. IV site intact, saline locked. Tubefeeding to G-tube in place. Call light with patient. Will continue monitoring.
[2020-04-09] MEDS: metroNIDAZOLE 500 mg/NS 100 ML IV SCH ×2 (06:11→13:18)
--- NOTE | 2020-04-09 06:32 | NUR ---
Closing note: Patient is asleep in bed, no acute distress. Even, unlabored breathing on trach to 4L T-bar. IV antibiotics per MD order infusing well to right wrist IV site. Tubefeeding via G-tube in place as ordered. All needs met. Call light with patient. Safety, fall, contact iso precautions observed. Will continue with plan of care.
[2020-04-09 06:39] LABS: BASOPHILS # (AUTO) 0.1 K/uL (0.0-0.2); BASOPHILS % (AUTO) 0.6 % (0.0-2.0); EOSINOPHILS # (AUTO) 0.6 K/uL (0.0-0.4); EOSINOPHILS % (AUTO) 6.6 % (0.0-4.0); HEMATOCRIT 27.2 % (36-54); HEMOGLOBIN 9.1 g/dL (14.0-18.0); LYMPHOCYTES # (AUTO) 0.9 K/uL (1.0-5.5); LYMPHOCYTES % (AUTO) 9.5 % (20.5-51.5); MEAN CORPUSCULAR HEMOGLOBIN 32 pg (27-31); MEAN CORPUSCULAR HGB CONC 34 % (32-36); MEAN CORPUSCULAR VOLUME 97 fL (79.0-98.0); MONOCYTES % (AUTO) 10.3 % (1.7-9.3); NEUTROPHILS # (AUTO) 7.2 K/uL (1.8-7.7); PLATELET COUNT (AUTO) 266 K/uL (130-430); RED BLOOD CELL COUNT(AUTO) 2.81 MIL/uL (4.2-6.2); RED CELL DISTRIBUTION WIDTH 18.6 % (9.0-15.0); WHITE BLOOD COUNT (AUTO) 9.8 K/uL (4.8-10.8)
[2020-04-09 06:43] LABS: ANION GAP 7 (5-15); CALCIUM 8.1 mg/dL (8.4-11.0); CHLORIDE 104 mmol/L (98-107); CREATININE 0.76 mg/dL (0.55-1.30); GLUCOSE 133 mg/dL (70-99); POTASSIUM 4.1 mmol/L (3.5-5.1); SODIUM SERUM 139 mmol/L (136-145); UREA NITROGEN, BLOOD 26 mg/dL (8-21)
[2020-04-09 07:49] VITALS: BP_SYST 112
--- NOTE | 2020-04-09 07:50 | NUR ---
seen pt trache out, r.t replaced it back. pt's o2 sat is 96%, educated pt not to pull out anylines or tubes. pt unable to verbalize understanding.
[2020-04-09] MEDS: FERROUS SULFATE 300 MG/5 ML UDC GT SCH (08:08)
[2020-04-09] MEDS: LANSOPRAZOLE 30 MG CAPSULE.DR GT SCH (08:09)
[2020-04-09] MEDS: ASCORBIC ACID 500 MG TABLET GT SCH (08:09)
[2020-04-09] MEDS: DOCUSATE SODIUM 100 MG CAPSULE PO SCH (08:09)
[2020-04-09] MEDS: HEPARIN SODIUM,PORCINE 5,000 UNITS/ML VIAL SUBCUT SCH (08:10)
[2020-04-09] MEDS: BALSAM PERU/CASTOR OIL 60 GM OINT...G. TP SCH (08:10)
[2020-04-09] MEDS: CHLORHEXIDINE GLUCONATE 15 ML/DOSE, 480 ML MM SCH (08:18)
--- NOTE | 2020-04-09 09:04 | NUR ---
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 Phone [facility] (p:[phone], f:[phone]) where the patient is originally from, spoke with Blanca STEWART and requested for clinicals to be faxed. [facility] Home Insurance Agent Natasha is to review packet. Addendum: 04/09/20 at 1343 by Zach NICOLE CAPTAIN WAITER/WAITRESS received order to d/c to [facility]. Spoke with TERRY Galeano Home Insurance Agent. Will call back for bed information. [facility] arranged on will call under BLS. CAPTAIN WAITER/WAITRESS informed daughter about transfer back. Addendum: 04/09/20 at 1451 by Zach NICOLE CAPTAIN WAITER/WAITRESS received call from Froylan STEWART from [facility]. Pt is accepted back and going to room 312. Packet in unit. [place] RN notified and will call Care for orange picker.
--- NOTE | 2020-04-09 09:20 | NUR ---
RECHECKED TEMP, IT WAS 98.9F
--- NOTE | 2020-04-09 09:45 | NUR ---
194cc noted from bladder scan.
[2020-04-09 10:13] VITALS: BP_SYST 112
[2020-04-09 11:27] VITALS: BP_SYST 131
[2020-04-09] MEDS ORDERED: AMOXICILLIN/CLAVULANATE POTASSIUM 875 MG TABLET PO ONE (13:15)
[2020-04-09 13:50] VITALS: BP_SYST 131
--- NOTE | 2020-04-09 14:50 | NUR ---
pt going to room 312 at [facility] per nurse outreach case manager and nurse [facility].
[2020-04-09 15:38] VITALS: BP_SYST 153
--- NOTE | 2020-04-09 17:30 | NUR ---
RECHECKED PT'S TEMP, BEFORE DC, IT WAS 98.7 TEMPORAL, INITIALLY PER AMB STAFF THEY GOT 100.3, AMB STAFF RECHECKED AND AND THEY SAID IT WAS AROUND 98 TO 99.
--- NOTE | 2020-04-09 17:45 | NUR ---
D/C Patient Patient given medication reconciliation form and D/C instructions. Exit Care provided. MD discussed with patient the results and treatment provided. Patient in stable condition, ID band removed. IV catheter removed, intact and dressing applied, no active bleeding. Patient educated on pain management. All belongings sent with patient.
[2020-04-09] MEDS ORDERED: AMOXICILLIN/CLAVULANATE POTASSIUM 875 MG TABLET PO SCH (21:00)
== END 2020-04-09 17:41 | DRG 137 ==
LOC: SED 17:56 → STU 19:41
PROVIDERS: ADMIT Internal Medicine; ATTEND Internal Medicine
PROC: 30233N1 Transfusion of Nonautologous Red Blood Cells into Peripheral Vein, Percutaneous Approach (ICD-10-PCS; principal; 2020-04-06)
DX: J69.0 Pneumonitis due to inhalation of food and vomit (principal); E87.6 Hypokalemia; E43 Unspecified severe protein-calorie malnutrition; R13.10 Dysphagia, unspecified; D63.8 Anemia in other chronic diseases classified elsewhere; J96.10 Chronic respiratory failure, unspecified whether with hypoxia or hypercapnia; L89.159 Pressure ulcer of sacral region, unspecified stage; Z68.1 Body mass index [BMI] 19.9 or less, adult; Z93.0 Tracheostomy status; Z86.73 Personal history of transient ischemic attack (TIA), and cerebral infarction without residual deficits; Z20.828 Contact with and (suspected) exposure to other viral communicable diseases; L89.609 Pressure ulcer of unspecified heel, unspecified stage
CPT/HCPCS: 36415; 36600; 71045; 80048; 80053; 81000-TC; 82607; 82728; 82746; 82803-TC; 83540-TC; 83550-TC; 83605; 83880; 84443-TC; 84484; 85025; 85610-TC; 85730-TC; 86886; 86900; 86901; 86920; 87040-TC; 87070-TC; 87081; 87205-TC; 93005; 94640; 94760; 96365; 96375; 99285; A6209; G0378; J0696; J1644; J3370; J3480; J3490; J7030; J7040; J7060; P9021

== ENCOUNTER 2020-04-09 20:01 | Emergency (ER) | payer MEDICARE, MEDICAID, SELFPAY ==
[~2020-04-09] VITALS: Ht 175.3 cm; Wt 61.2 kg
[~2020-04-09 20:01] MED LIST: ACET325T GT; ALBMDI INH; ALBU2.5V7 INH; AMIN30LI2 GT; ASCO500T20 GT; CA C1TAB92 GT; CHLO473M5 PO; DOCU-144 GT; FER300L GT; HEPA500015 SUBCUT; LANS30CA53 GT; LEVO500T89 GT; MULT-1100 GT; POLY500W3 GT; SENN8.6T19 GT; ZINC220T4 GT
[2020-04-09 20:10] VITALS: BP_SYST 141
--- NOTE | 2020-04-09 20:10 | NUR ---
Patient to ER bed 2 to gown for evaluation. Side rails up. Report given to OCTOBER.
--- NOTE | 2020-04-09 20:12 | NUR ---
Patient BIB back by JENNY from [facility]. C/O Tachycardia x today. Per reported, patient discharged today from M/S unit when patient arrived to facility , Temp 101 , HR 136 , Staff could not accepting and transfer back to [facility]. Non-verbal, on Trach with T bar 4 L/Min, generalized weakness, skin dry, pale, Temp 98.9, G-tube LUQ, place patient on environmental monitoring specialist and pulse ox.
[2020-04-09] MEDS ORDERED: NACL 0.9% 1,000 ML IV ONE (20:45)
[2020-04-09] MEDS ORDERED: METOPROLOL TARTRATE 5 MG/5 ML VIAL IVP ONE (20:45)
--- NOTE | 2020-04-09 20:56 | NUR ---
ER Dr. Hartmann at bedside examining patient.
--- NOTE | 2020-04-09 20:56 | NUR ---
[employer] in ED - 04/09/20 at 2219 by [id number] PREET Brennan at bedside examining patient.
--- NOTE | 2020-04-09 21:07 | NUR ---
HR 101 after IV medication Lopressor 5 mg IV
--- NOTE | 2020-04-09 21:53 | NUR ---
Notified Myesha from [facility] that pt will be discharge.
--- NOTE | 2020-04-09 22:06 | NUR ---
RT at bedside for suctioning.
--- NOTE | 2020-04-09 22:22 | NUR ---
Patient resting quietly. No acute distress noted. Vital signs within normal range.
--- NOTE | 2020-04-09 22:50 | NUR ---
Patient discharged to facility ([facility]) via gurney by BLS/EMS.
[2020-04-09 22:51] VITALS: BP_SYST 119
== END 2020-04-09 22:50 | disposition home or self-care (01) ==
LOC: SED 20:01
DX: R00.0 Tachycardia, unspecified (principal); Z86.2 Personal history of diseases of the blood and blood-forming organs and certain disorders involving the immune mechanism; Z86.79 Personal history of other diseases of the circulatory system
CPT/HCPCS: 96361; 96374; 99285; J3490; J7030